=== PATIENT | female | born 1990 | race Caucasian/White ===

== ENCOUNTER 2016-10-28 14:35 | Inpatient (IN) | payer MEDICAID, OTHER, SELFPAY ==
[2016-10-28] MEDS ORDERED: Ondansetron 4 MG/2 ML SDV IVPUSH PRN (14:40)
[2016-10-28] MEDS ORDERED: Promethazine 25 MG/ML SDV IM PRN (14:40)
--- NOTE | 2016-10-28 14:45 | PCM.SN ---
"- Free Text/Narrative Note: Date: 10/28/2016 Subjective: Patient ID: Lena Medel is a 26 y.o. female. Chief Complaint: Patient presents for Emesis HPI Patient presents for frequent vomiting and nausea for the past 24 hours. She reports that she was in [place] last week. She had some vague body aches as well as a headache. She saw Dr. Zia Montesinos, PGY 3 on 10/26/2016. At that time she had a thorough lab workup including test, complete metabolic panel, complete blood count and urinalysis. She was found to have a urinary tract infection and was treated with Bactrim. Patient states she was able to take one dose of medication; however, she has not been able to keep another dose of medication down due to her vomiting. For the past 24 hours, she has vomited any time she eats or drinks anything. She has not been able to keep down water since yesterday evening. She also complains of bilateral mid back pain. She denies any diarrhea. She does report fevers. She states she has not checked her temperature every time she has felt feverish but she did have a temperature of 101.5 last night. PastMedicalHistory History reviewed. No pertinent past medical history. MedicationsMarkedAsTaking Medications Marked As Taking Medication Sig ibuprofen (ADVIL;MOTRIN) 100 MG/5ML suspension Take 5 mg/kg by mouth every 6 hours as needed for Fever. ondansetron (ZOFRAN) 8 MG tablet Take 1 Tab by mouth every 12 hours as needed for Nausea. sulfamethoxazole-trimethoprim (BACTRIM DS;SEPTRA DS) 800-160 MG per tablet Take 1 Tab by mouth 2 times daily for 10 days. No Known Allergies Review of Systems Constitutional: Positive for activity change, appetite change, chills, diaphoresis, fatigue and fever. HENT: Negative for congestion, sore throat and voice change. Respiratory: Negative for choking and shortness of breath. Gastrointestinal: Positive for nausea and vomiting. Negative for abdominal pain , constipation and diarrhea. Genitourinary: Positive for flank pain, frequency and pelvic pain. Negative for decreased urine volume, difficulty urinating and hematuria. Skin: Negative for rash. Neurological: Positive for headaches. Negative for dizziness and light- headedness. Objective: BP 110/78 | Temp 99.1 F (37.3 C) (Tympanic) | Resp 20 | Wt 173 lb 9.6 oz ( 78.7 kg) Physical Exam Constitutional: She appears well-developed and well-nourished. She appears ill. Cardiovascular: Normal rate, regular rhythm and normal heart sounds. No murmur heard. Pulmonary/Chest: Effort normal and breath sounds normal. Abdominal: Soft. Normal appearance and bowel sounds are normal. There is no hepatosplenomegaly. There is no tenderness. There is CVA tenderness (bilateral) . There is no tenderness at McBurney's point and negative Jay's sign. Neurological: She is alert. Skin: Skin is warm and dry. RecentResults Recent Results (from the past 24 hour(s)) CBC with Automated Differential Collection Time: 10/28/16 11:03 AM Result Value Ref Range White Blood Cell Count 7.70 3.60 - 11.00 K/uL Red Blood Cell Count 4.73 3.80 - 5.40 M/uL Hemoglobin 13.5 12.0 - 16.0 g/dL Hematocrit 40.6 35.0 - 49.0 % MCV 85.8 80.0 - 100.0 fL MCH 28.5 26.0 - 34.0 pg MCHC 33.3 32.0 - 36.0 g/dL RDW 11.8 11.5 - 14.0 % Platelet Count 138 (L) 150 - 450 K/L MPV 8.9 8.0 - 13.0 fL Neutrophils Relative Percent 84.7 (H) 42.2 - 75.2 % Lymphocytes Relative Percent 9.5 (L) 20.5 - 51.1 % Monocytes Relative Percent 5.7 1.7 - 9.3 % Eosinophils Relative Percent 0.0 (L) 0.9 - 6.0 % Basophils Relative Percent 0.1 (L) 0.3 - 1.5 % Neutrophils Absolute 6.60 1.50 - 8.30 K/UL Lymphocytes Absolute 0.70 0.70 - 5.60 K/UL Monocytes Absolute 0.40 0.10 - 1.00 K/UL Eosinophils Absolute 0.00 0.00 - 0.70 K/uL Basophils Absolute 0.00 0.00 - 0.20 K/uL Basic metabolic panel Collection Time: 10/28/16 11:03 AM Result Value Ref Range BUN 15 7 - 18 mg/dL Sodium 135 (L) 136 - 145 mmol/L Potassium 3.4 (L) 3.5 - 5.1 mmol/L Chloride 97 (L) 98 - 107 mmol/L CO2 24.7 21.0 - 32.0 mmol/L Glucose 116 (H) 70 - 99 mg/dL Creatinine 0.9 0.6 - 1.0 mg/dL Calcium 9.0 8.5 - 10.1 mg/dL Anion Gap 13.3 (H) 5.0 - 13.0 mmol/L GFR Calculated >60 mL/min/1.73 sq m Urinalysis (with reflex microscopic) Collection Time: 10/28/16 11:03 AM Result Value Ref Range Color UA Yellow Light Yellow, Yellow, Colorless, Dk Yellow, Other, - Clarity UA Clear Clear, Other, - Glucose UA Negative Negative, - mg/dL Bilirubin UA Small (A) Negative, - mg/dL Ketones UA Negative Negative, - mg/dL Blood UA Small (A) Negative, - pH 6.0 5.0 - 8.0 Protein UA 100 mg/dL (A) Negative, - mg/dL Urobilinogen UA 4.0 E.U./dL (A) 0.2 E.U./dL, - mg/dL Nitrite UA Negative Negative Leukocytes UA Negative Negative, - Specific [place] Urine 1.025 Urine microscopic only Collection Time: 10/28/16 11:03 AM Result Value Ref Range Epithelial Cells Few Occasional, Few, None Seen /HPF RBC UA 1-5/HPF (A) None Seen /HPF WBC UA 1-5/HPF (A) None Seen /HPF Bacteria UA Moderate (A) None Seen /HPF Mucous UA None Seen None Seen /HPF Urine Bilirubin, Ictotest Collection Time: 10/28/16 11:03 AM Result Value Ref Range Bilirubin Confirmation UA Negative Negative Assessment: ICD-10-CM ICD-9-CM 1. Pyelonephritis N12 590.80 Urine culture Plan: Review of patient's labs from 10/26/2016 can concur that she did indeed have a urinary tract infection. I explained to patient that given her symptoms, this has likely progressed to a kidney infection. It was also noted during her evaluation earlier this week that she did have elevated liver enzymes. These are to be repeated in 2 weeks. For her current illness, we'll send patient upstairs to receive 1 L of normal saline IV in addition to 1 g IV Rocephin and IV Zofran for her nausea. We will see how patient is doing after she receives these fluids and proceed with further management at that time area and also submit her urine for a urine culture. Catarina Wilson MD Addendum: Patient felt only mildly improved after receiving IV fluids and Zofran. She was also noted to have a temperature of 102.8. Due to these findings, I will send patient over to the hospital for admission. I will continue IV Rocephin for treatment of pyelonephritis. She will also receive IV fluids and anti-emetics. She will also have Tylenol available for fevers. We'll repeat a complete metabolic panel tomorrow morning. As I am obtaining lab, will also check for hepatitis A if this is available given her elevated liver enzymes and her recent travel to [place]. Catarina Wilson MD"
[2016-10-28] MEDS: Sodium Chloride 0.9% 1,000 ML IV SCH ×2 (15:38→23:32)
[2016-10-28] MEDS: Acetaminophen 325 MG Tab PO PRN ×2 (15:38→23:27)
[2016-10-28] MEDS: Ondansetron 4 MG Tab.DIS PO PRN (16:24)
[2016-10-28] MEDS ORDERED: Morphine 2 MG/ML Syringe IVPUSH PRN ×2 (20:23→20:24)
[2016-10-28] MEDS ORDERED: Loperamide 2 MG Cap PO PRN (23:01)
[2016-10-28] MEDS ORDERED: diphenhydrAMINE 50 MG Cap PO PRN (23:03)
[2016-10-29 07:14] LABS: CHLORIDE,CL 103 mmol/L (101-111); SODIUM,NA 134 mmol/L (135-145)
[2016-10-29] MEDS: Sodium Chloride 0.9% 1,000 ML IV SCH ×2 (07:56→17:07)
[2016-10-29] MEDS: Sodium Chloride 0.9% 10 ML Syringe FLUSH PRN (07:57)
[2016-10-29] MEDS ORDERED: cefTRIAXone 1 GM in Sodium Chloride 0.9% 50 ML IV SCH (08:00)
[2016-10-29] MEDS: Acetaminophen 325 MG Tab PO PRN ×3 (08:53→22:00)
--- NOTE | 2016-10-29 09:41 | PCM.PN ---
- General Info Date of Service: 10/29/16 Subjective Update: 26-year-old female is HD#1 admitted with pyelonephritis. Patient reports that she is feeling somewhat better today. She is still having some sweats and chills but reports that her back pain has improved significantly. Her nausea is still present at times but has decreased in frequency and severity. She has continued to spike fevers since admission. She is voiding without difficulty. She has no new symptoms today. - Review of Systems General: Reports: Fever, Fatigue, Appetite (Decreased) HEENT: Reports: no symptoms Pulmonary: Reports: no symptoms Cardiovascular: Reports: No Symptoms Gastrointestinal: Reports: No symptoms Genitourinary: Reports: no symptoms Musculoskeletal: Reports: no symptoms Skin: Reports: no symptoms - Patient Data Vitals - most recent: Last Vital Signs Temp 38.8 C H 10/29/16 07:00 Pulse 116 H 10/29/16 07:00 Resp 20 10/29/16 07:00 BP 114/65 10/29/16 07:00 Pulse Ox 99 10/29/16 07:00 Weight - most recent: 79.379 kg I&O - last 24 hours: Intake & Output 10/28/16 10/29/16 10/29/16 22:59 06:59 14:59 Intake Total 2792 204 Balance 2792 204 Lab Results last 24 hrs: Laboratory Results - last 24 hr 10/29/16 Range/Units 06:00 Sodium 134 L (135-145) mmol/L Potassium 3.6 (3.6-5.0) mmol/L Chloride 103 (101-111) mmol/L Carbon Dioxide 24.0 (21.0-31.0) mmol/L Anion Gap 10.6 BUN 11 (7-18) mg/dL Creatinine 0.7 (0.6-1.3) mg/dL Est Cr Clr Drug Dosing 110.55 mL/min Estimated GFR (MDRD) > 60 Glucose 95 (74-105) mg/dL Calcium 7.6 L (8.4-10.2) mg/dl Total Bilirubin 1.4 H (0.2-1.0) mg/dL Direct Bilirubin 0.8 H (0.0-0.2) mg/dL Indirect Bilirubin 0.6 AST 156 H (10-42) IU/L ALT 96 H (10-60) IU/L Alkaline Phosphatase 149 H (42-121) IU/L Total Protein 6.2 L (6.7-8.2) g/dl Albumin 2.7 L (3.2-5.5) g/dl Globulin 3.5 Albumin/Globulin Ratio 0.77 Malcolm Results last 24 hrs: Microbiology 10/29/16 08:20 Anaerobic Blood Culture - Final Blood - Venous - Lab Draw Med Orders - Current: Current Medications Acetaminophen (Tylenol) 650 mg PO Q4H PRN PRN Reason: Pain (Mild 1-3)/fever Last Admin: 10/29/16 08:53 Dose: 650 mg Diphenhydramine HCl (Benadryl) 50 mg PO BEDTIME PRN PRN Reason: Sleep Sodium Chloride (Normal Saline) 1,000 mls @ 125 mls/hr IV ASDIRECTED REMI Last Admin: 10/29/16 07:56 Dose: 125 mls/hr Ceftriaxone Sodium 1 gm/ (Sodium Chloride) 50 mls @ 100 mls/hr IV Q12H REMI Loperamide HCl (Imodium) 2 mg PO Q1H PRN PRN Reason: Diarrhea Last Admin: 10/28/16 23:27 Dose: 2 mg Morphine Sulfate (Morphine) 1 mg IVPUSH Q4H PRN PRN Reason: Pain Morphine Sulfate (Morphine) 2 mg IVPUSH Q4H PRN PRN Reason: Pain Ondansetron HCl (Zofran Odt) 8 mg PO Q4H PRN PRN Reason: nausea, able to take PO Last Admin: 10/28/16 16:24 Dose: 8 mg Ondansetron HCl (Zofran) 8 mg IVPUSH Q6H PRN PRN Reason: Nausea/Vomiting Promethazine HCl (Phenergan) 12.5 mg IM Q6H PRN PRN Reason: Nausea/Vomiting Last Admin: 10/28/16 19:42 Dose: 12.5 mg Sodium Chloride (Saline Flush) 10 ml FLUSH ASDIRECTED PRN PRN Reason: Keep Vein Open Last Admin: 10/29/16 07:57 Dose: 10 ml - Exam General: alert, oriented HEENT: Mucous membr. moist/pink Lungs: Clear to auscultation, Normal respiratory effort Cardiovascular: Regular Rate, Regular Rhythm, No Murmurs Abdomen: soft, no tenderness. No: CVA tenderness Extremities: no edema - Problem List & Annotations (1) Pyelonephritis SNOMED Code(s): 55019555 Code(s): N12 - TUBULO-INTERSTITIAL NEPHRITIS, NOT SPCF ACUTE OR CHRONIC Status: Acute Current Visit: Yes - Problem List Review Problem List Initiated/Reviewed/Updated: Yes - My Orders Last 24 Hours: My Active Orders 10/28/16 14:40 Patient Status [ADT] Routine Up ad [place] [RC] ASDIRECTED Vital Signs [RC] 07,11,15,19,23,03 Acetaminophen [Tylenol] 650 mg PO Q4H PRN Ondansetron [Zofran ODT] 8 mg PO Q4H PRN Ondansetron [Zofran] 8 mg IVPUSH Q6H PRN Promethazine [Phenergan] 12.5 mg IM Q6H PRN Sodium Chloride 0.9% [Saline Flush] 10 ml FLUSH ASDIRECTED PRN Peripheral IV Insertion Adult [OM.PC] Routine Resuscitation Status Routine 10/28/16 14:41 Intake and Output [RC] QSHIFT 10/28/16 14:45 Sodium Chloride 0.9% [Normal Saline] 1,000 ml IV ASDIRECTED 10/28/16 20:23 Morphine 1 mg IVPUSH Q4H PRN 10/28/16 20:24 Morphine 2 mg IVPUSH Q4H PRN 10/28/16 23:01 Loperamide [Imodium] 2 mg PO Q1H PRN 10/28/16 23:03 diphenhydrAMINE [Benadryl] 50 mg PO BEDTIME PRN 10/28/16 Dinner Regular Diet [DIET] 10/29/16 06:15 HEPATITIS PANEL, ACUTE [REF] Routine 10/29/16 08:00 cefTRIAXone [Rocephin] 1 gm Sodium Chloride 0.9% [Normal Saline] 50 ml IV Q12H 10/29/16 08:04 Blood Culture x2 Reflex Set [OM.PC] Stat 10/29/16 08:15 CULTURE BLOOD [BC] Stat 10/29/16 08:20 CULTURE BLOOD [BC] Stat 10/29/16 08:25 Retroperitoneal Comp [US] Routine 10/30/16 07:00 CBC WITH AUTO DIFF [HEME] Routine COMPREHENSIVE METABOLIC PN,CMP [CHEM] Routine - Assessment Assessment:: 26-year-old female with pyelonephritis - Plan Plan:: 1. Will increase dose of Rocephin to 1 gram twice daily (previously 1 gram daily ) 2. Continue Tylenol for fever and antiemetics as needed 3. Will repeat CMP and CBC tomorrow 4. Blood cultures obtained this morning as patient has continued to spike fevers. 5. Will also obtain a renal ultrasound today as it is Tuesday and patient has been sick for several day. 6. Advised patient that we will plan for discharge when she has been afebrile for 24 hours. Catarina Wilson MD
[2016-10-29] MEDS: cefTRIAXone 1 GM in Sodium Chloride 0.9% 50 ML IV SCH (21:57)
[2016-10-30] MEDS: Sodium Chloride 0.9% 1,000 ML IV SCH (01:43)
[2016-10-30 07:06] LABS: CHLORIDE,CL 102 mmol/L (101-111); SODIUM,NA 131 mmol/L (135-145)
[2016-10-30] MEDS: Acetaminophen 325 MG Tab PO PRN (07:26)
[2016-10-30] MEDS: cefTRIAXone 1 GM in Sodium Chloride 0.9% 50 ML IV SCH ×2 (08:17→19:54)
[2016-10-30] MEDS ORDERED: Potassium Chloride 10 MEQ Tab.ER PO ONE (10:06)
--- NOTE | 2016-10-30 11:20 | PCM.PN ---
- General Info Date of Service: 10/30/16 Subjective Update: 26-year-old female is HD#2 admitted with pyelonephritis. Patient reports that she is feeling even better today. She denies sweats and chills for the past 24 hours and reports that her back pain has resolved. Her nausea is still present at times but usually only when she takes medications or eats too much. She has continued to spike fevers since admission but her Tmax was 100.9 this morning so fevers are trending down. She is voiding without difficulty. She has no new symptoms today. Functional Status: Reports: pain controlled, tolerating diet, ambulating, urinating. Denies: new symptoms - Review of Systems General: Reports: Fever HEENT: Reports: no symptoms Pulmonary: Reports: no symptoms Cardiovascular: Reports: No Symptoms Gastrointestinal: Reports: No symptoms Genitourinary: Reports: no symptoms Musculoskeletal: Reports: no symptoms Skin: Reports: no symptoms Neurological: Reports: No Symptoms Psychiatric: Reports: no symptoms - Patient Data Vitals - most recent: Last Vital Signs Temp 36.6 C 10/30/16 08:24 Pulse 114 H 10/30/16 07:00 Resp 20 10/30/16 07:00 BP 126/63 10/30/16 07:00 Pulse Ox 98 10/30/16 07:00 Weight - most recent: 79.379 kg I&O - last 24 hours: Intake & Output 10/29/16 10/30/16 10/30/16 22:59 06:59 14:59 Intake Total 2254 1015 Balance 2254 1015 Lab Results last 24 hrs: Laboratory Results - last 24 hr 10/30/16 10/30/16 Range/Units 06:10 06:10 WBC 5.3 (5.0-10.0) 10^3/uL RBC 3.50 L (4.2-5.4) 10^6/uL Hgb 10.4 L (12.0-16.0) g/dL Hct 30.4 L (37.0-47.0) % MCV 86.9 (80-100) fL MCH 29.7 (27.0-34.0) pg MCHC 34.2 (33.0-35.0) g/dL Plt Count 110 L (150-450) 10^3/uL Neut % (Auto) 71.6 (42.2-75.2) % Lymph % (Auto) 20.0 L (20.5-50.1) % [place] % (Auto) 8.2 H (2-8) % Eos % (Auto) 0.0 L (1.0-3.0) % Baso % (Auto) 0.2 (0.0-1.0) % Add Manual Diff Yes Neutrophils % (Manual) 64 % Band Neutrophils % 8 % Lymphocytes % (Manual) 20 % Atypical Lymphs % 2 % Monocytes % (Manual) 6 % Sodium 131 L (135-145) mmol/L Potassium 3.3 L (3.6-5.0) mmol/L Chloride 102 (101-111) mmol/L Carbon Dioxide 22.0 (21.0-31.0) mmol/L Anion Gap 10.3 BUN 7 (7-18) mg/dL Creatinine 0.5 L (0.6-1.3) mg/dL Est Cr Clr Drug Dosing 154.77 mL/min Estimated GFR (MDRD) > 60 BUN/Creatinine Ratio 14.00 Glucose 91 (74-105) mg/dL Calcium 7.3 L (8.4-10.2) mg/dl Total Bilirubin 1.7 H (0.2-1.0) mg/dL AST 249 H (10-42) IU/L ALT 128 H (10-60) IU/L Alkaline Phosphatase 171 H (42-121) IU/L Total Protein 5.7 L (6.7-8.2) g/dl Albumin 2.4 L (3.2-5.5) g/dl Globulin 3.3 Albumin/Globulin Ratio 0.73 Malcolm Results last 24 hrs: Microbiology 10/29/16 08:15 Aerobic Blood Culture - Preliminary Blood - Venous NO GROWTH AFTER 1 DAY Anaerobic Blood Culture - Preliminary NO GROWTH AFTER 1 DAY 10/29/16 08:20 Aerobic Blood Culture - Preliminary Blood - Venous - Lab Draw NO GROWTH AFTER 1 DAY Anaerobic Blood Culture - Final Med Orders - Current: Current Medications Diphenhydramine HCl (Benadryl) 50 mg PO BEDTIME PRN PRN Reason: Sleep Ceftriaxone Sodium 1 gm/ (Sodium Chloride) 50 mls @ 100 mls/hr IV Q12H REMI Last Admin: 10/30/16 08:17 Dose: 100 mls/hr Ibuprofen (Motrin) 600 mg PO Q6H PRN PRN Reason: Fever Loperamide HCl (Imodium) 2 mg PO Q1H PRN PRN Reason: Diarrhea Last Admin: 10/28/16 23:27 Dose: 2 mg Morphine Sulfate (Morphine) 1 mg IVPUSH Q4H PRN PRN Reason: Pain Morphine Sulfate (Morphine) 2 mg IVPUSH Q4H PRN PRN Reason: Pain Ondansetron HCl (Zofran Odt) 8 mg PO Q4H PRN PRN Reason: nausea, able to take PO Last Admin: 10/28/16 16:24 Dose: 8 mg Ondansetron HCl (Zofran) 8 mg IVPUSH Q6H PRN PRN Reason: Nausea/Vomiting Promethazine HCl (Phenergan) 12.5 mg IM Q6H PRN PRN Reason: Nausea/Vomiting Last Admin: 10/28/16 19:42 Dose: 12.5 mg Sodium Chloride (Saline Flush) 10 ml FLUSH ASDIRECTED PRN PRN Reason: Keep Vein Open Last Admin: 10/29/16 07:57 Dose: 10 ml Discontinued Medications Acetaminophen (Tylenol) 650 mg PO Q4H PRN PRN Reason: Pain (Mild 1-3)/fever Last Admin: 10/30/16 07:26 Dose: 650 mg Sodium Chloride (Normal Saline) 1,000 mls @ 125 mls/hr IV ASDIRECTED [facility] Last Admin: 10/30/16 01:43 Dose: 125 mls/hr Ceftriaxone Sodium 1 gm/ (Sodium Chloride) 50 mls @ 100 mls/hr IV Q12H [facility] Last Admin: 10/29/16 09:39 Dose: 100 mls/hr Potassium Chloride (Klor-Con 10) 40 meq PO ONETIME ONE Stop: 10/30/16 10:07 Last Admin: 10/30/16 10:41 Dose: 40 meq - Exam General: alert, oriented HEENT: Mucous membr. moist/pink Lungs: Clear to auscultation, Normal respiratory effort Cardiovascular: Regular Rate, Regular Rhythm, No Murmurs Abdomen: bowel sounds present, soft, no tenderness, no distension. No: CVA tenderness Extremities: no edema Skin: warm, dry, intact - Problem List & Annotations (1) Pyelonephritis SNOMED Code(s): 72902168 Code(s): N12 - TUBULO-INTERSTITIAL NEPHRITIS, NOT SPCF ACUTE OR CHRONIC Status: Acute Current Visit: Yes (2) Elevated liver enzymes SNOMED Code(s): 724801875, 004121792 Code(s): R74.8 - ABNORMAL LEVELS OF OTHER SERUM ENZYMES Status: Acute Current Visit: Yes - Problem List Review Problem List Initiated/Reviewed/Updated: Yes - My Orders Last 24 Hours: My Active Orders 10/29/16 20:00 cefTRIAXone [Rocephin] 1 gm Sodium Chloride 0.9% [Normal Saline] 50 ml IV Q12H 10/30/16 10:07 Ibuprofen [Motrin] 600 mg PO Q6H PRN 10/31/16 07:00 COMPREHENSIVE METABOLIC PN,CMP [CHEM] Routine - Assessment Assessment:: 26-year-old female with pyelonephritis, improving - Plan Plan:: 1. Continue Rocephin for pyelonephritis 2. Continue antiemetics as needed 3. Will stop Tyelnol given worsening in LFTs today. Ibuprofen prescribed for fevers 4. Will repeat CMP tomorrow. Patient will likely need follow-up for her LFTs as outpatient as well. 5. Renal ultrasound was done yesterday; however, there is no read available currently. 6. Advised patient that we will plan for discharge when she has been afebrile for 24 hours. If her temperature does not to go over 100.9 degrees in the next 24 hours, will plan to discharge tomorrow. Catarina Wilson MD
[2016-10-30] MEDS: Ibuprofen 600 MG Tab PO PRN (15:36)
[2016-10-30] MEDS: Sodium Chloride 0.9% 10 ML Syringe FLUSH PRN ×2 (19:54→20:29)
[2016-10-31] MEDS: Ibuprofen 600 MG Tab PO PRN (03:26)
[2016-10-31 05:19] LABS: CHLORIDE,CL 102 mmol/L (101-111); SODIUM,NA 131 mmol/L (135-145)
[2016-10-31] MEDS: cefTRIAXone 1 GM in Sodium Chloride 0.9% 50 ML IV SCH (08:01)
[2016-10-31] MEDS: Sodium Chloride 0.9% 10 ML Syringe FLUSH PRN (08:01)
[2016-10-31] MEDS: Ondansetron 4 MG Tab.DIS PO PRN (09:00)
--- NOTE | 2016-10-31 10:28 | PCM.DCSUM1 ---
Discharge Summary - Hospital Course Free Text/Narrative:: 26-year-old female was seen in the clinic 10/26/16 with vague complaints of not feeling well and various muscle aches. Labs were done and showed acute cystitis. She also had mildly elevated liver enzymes. Patient did report that she had recently be in [place]. Patient was started on Bactrim. She took one dose successfully; however, they then developed nausea and vomiting so was unable to keep down any further doses of medication. She was seen by me in clinic on 10/28/16 and was found to have flank pain, nausea and vomiting. She was given IV fluids, IV Rocephin and IV Zofran in the clinic but did not improve much so was admitted to the hospital. She was started on IV Rocephin. Since her hospitalization, she initially improved. Her fevers were trending down and her nausea and pain had resolved. Around 0100 today, she spiked a fever of 102.8 degrees. Since that time, she has also developed worsening nausea and right upper quadrant pain. She did have an episode of emesis this morning. Her LFTs are significantly elevated today. A hepatitis panel was drawn a couple of days ago; however, results are not yet available. A renal ultrasound was done 10/29/16 and was unremarkable. Our facility does not have access to ultrasound today. I discussed patient with Dr. Rider, the hospitalist, and we agree that transferring the patient is appropriate. - Discharge Data Discharge Date: 10/31/16 Discharge Disposition: DC/Tfer to Acute Hospital 02 Condition: Fair - Discharge Diagnosis/Problem(s) (1) Pyelonephritis SNOMED Code(s): 49938478 ICD Code: N12 - TUBULO-INTERSTITIAL NEPHRITIS, NOT SPCF ACUTE OR CHRONIC Status: Acute Current Visit: Yes (2) Elevated liver enzymes SNOMED Code(s): 678489689, 525649683 ICD Code: R74.8 - ABNORMAL LEVELS OF OTHER SERUM ENZYMES Status: Acute Current Visit: Yes - Patient Summary/Data Operative Procedure(s) Performed: None Complications: See above Consults: None Labs Pending at D/C: Hepatitis panel Blood cultures Hospital Course: See above - Discharge Plan - Discharge Summary/Plan Comment DC Time >30 min.: Yes - General Info Date of Service: 10/31/16 Subjective Update: Patient is ill appearing today. She complains of nausea and RUQ abdominal pain. She also did have an episode of vomiting this morning. She also complaints of chills. She is urinating without difficulty and denies any flank pain. Functional Status: Reports: ambulating, urinating. Denies: tolerating diet - Review of Systems General: Reports: Fever, Malaise, Chills, Appetite (Decreased) HEENT: Reports: no symptoms Pulmonary: Reports: no symptoms Cardiovascular: Reports: No Symptoms Gastrointestinal: Reports: Abdominal pain, Decreased appetite, Vomiting Genitourinary: Reports: no symptoms Musculoskeletal: Reports: no symptoms Skin: Reports: no symptoms Neurological: Reports: No Symptoms Psychiatric: Reports: no symptoms - Patient Data Vitals - Most Recent: Last Vital Signs Temp 36.6 C 10/31/16 07:00 Pulse 88 10/31/16 07:00 Resp 20 10/31/16 07:00 BP 124/65 10/31/16 07:00 Pulse Ox 98 10/31/16 07:00 Weight - Most Recent: 79.379 kg I&O - Last 24 hours: Intake & Output 10/30/16 10/31/16 10/31/16 22:59 06:59 14:59 Intake Total 560 750 45 Output Total 400 950 Balance 160 -200 45 Lab Results - Last 24 hrs: Laboratory Results - last 24 hr 10/31/16 Range/Units 04:30 Sodium 131 L (135-145) mmol/L Potassium 3.6 (3.6-5.0) mmol/L Chloride 102 (101-111) mmol/L Carbon Dioxide 21.0 (21.0-31.0) mmol/L Anion Gap 11.6 BUN 8 (7-18) mg/dL Creatinine 0.5 L (0.6-1.3) mg/dL Est Cr Clr Drug Dosing 154.77 mL/min Estimated GFR (MDRD) > 60 BUN/Creatinine Ratio 16.00 Glucose 98 (74-105) mg/dL Calcium 7.6 L (8.4-10.2) mg/dl Total Bilirubin 2.0 H (0.2-1.0) mg/dL AST 734 H (10-42) IU/L ALT 302 H (10-60) IU/L Alkaline Phosphatase 250 H (42-121) IU/L Total Protein 5.3 L (6.7-8.2) g/dl Albumin 2.4 L (3.2-5.5) g/dl Globulin 2.9 Albumin/Globulin Ratio 0.83 SUSAN Results - Last 24 hrs: Microbiology 10/29/16 08:15 Aerobic Blood Culture - Preliminary Blood - Venous NO GROWTH AFTER 2 DAYS Anaerobic Blood Culture - Preliminary NO GROWTH AFTER 2 DAYS 10/29/16 08:20 Aerobic Blood Culture - Preliminary Blood - Venous - Lab Draw NO GROWTH AFTER 2 DAYS Anaerobic Blood Culture - Final 10/31/16 04:35 Anaerobic Blood Culture - Final Blood Med Orders - Current: Current Medications Diphenhydramine HCl (Benadryl) 50 mg PO BEDTIME PRN PRN Reason: Sleep Ceftriaxone Sodium 1 gm/ (Sodium Chloride) 50 mls @ 100 mls/hr IV Q12H REMI Last Admin: 10/31/16 08:01 Dose: 100 mls/hr Ibuprofen (Motrin) 600 mg PO Q6H PRN PRN Reason: Fever Last Admin: 10/31/16 03:26 Dose: 600 mg Loperamide HCl (Imodium) 2 mg PO Q1H PRN PRN Reason: Diarrhea Last Admin: 10/28/16 23:27 Dose: 2 mg Morphine Sulfate (Morphine) 1 mg IVPUSH Q4H PRN PRN Reason: Pain Morphine Sulfate (Morphine) 2 mg IVPUSH Q4H PRN PRN Reason: Pain Ondansetron HCl (Zofran Odt) 8 mg PO Q4H PRN PRN Reason: nausea, able to take PO Last Admin: 10/31/16 09:00 Dose: 8 mg Ondansetron HCl (Zofran) 8 mg IVPUSH Q6H PRN PRN Reason: Nausea/Vomiting Promethazine HCl (Phenergan) 12.5 mg IM Q6H PRN PRN Reason: Nausea/Vomiting Last Admin: 10/28/16 19:42 Dose: 12.5 mg Sodium Chloride (Saline Flush) 10 ml FLUSH ASDIRECTED PRN PRN Reason: Keep Vein Open Last Admin: 10/31/16 08:01 Dose: 10 ml Discontinued Medications Acetaminophen (Tylenol) 650 mg PO Q4H PRN PRN Reason: Pain (Mild 1-3)/fever Last Admin: 10/30/16 07:26 Dose: 650 mg Sodium Chloride (Normal Saline) 1,000 mls @ 125 mls/hr IV ASDIRECTED [facility] Last Admin: 10/30/16 01:43 Dose: 125 mls/hr Ceftriaxone Sodium 1 gm/ (Sodium Chloride) 50 mls @ 100 mls/hr IV Q12H [facility] Last Admin: 10/29/16 09:39 Dose: 100 mls/hr Potassium Chloride (Klor-Con 10) 40 meq PO ONETIME ONE Stop: 10/30/16 10:07 Last Admin: 10/30/16 10:41 Dose: 40 meq - Exam General: Reports: alert, oriented HEENT: Reports: Pupils equal, Mucous membr. moist/pink Lungs: Reports: Clear to auscultation, Normal respiratory effort Cardiovascular: Reports: Regular Rate, Regular Rhythm, No Murmurs Abdomen: Reports: bowel sounds present, tenderness (RUQ). Denies: rigidity, rebound, guarding Extremities: Reports: no edema Skin: Reports: warm, dry, intact *Q Meaningful Use (DIS) - VTE *Q VTE Criteria *Q: - Stroke *Q Stroke Criteria *Q: - AMI *Q AMI Criteria *Q:
[2016-10-31 12:34] VITALS: BP 117/67
== END 2016-10-31 12:10 | DRG 690 ==
LOC: DL.MS 14:35 → UNDOADMIN 14:35 → DL.MS 14:40
PROVIDERS: ADMIT Family Medicine; ATTEND Family Medicine
DX: N12 Tubulo-interstitial nephritis, not specified as acute or chronic (principal); R74.8 Abnormal levels of other serum enzymes
CPT/HCPCS: 36415; 76770; 80048; 80053; 80074; 80076; 85025; 87040; 87077; 87186; A9270-GY; J0696; J2550; J7030; J7050